=== PATIENT | male | born 1975 | race Caucasian/White ===

== ENCOUNTER 2016-12-18 19:10 | Emergency (ER) | payer MEDICAID ==
[2016-12-18 19:21] VITALS: BP 145/79; PULSE 97; RESP 20; TEMP 97.7; O2SAT 99
--- NOTE | 2016-12-18 19:23 | CPEKG ---
Heart Rate: 86 RR Interval: 698 P-R Interval: 160 QRSD Interval: 92 QT Interval: 360 QTC Interval: 431 P Citra: 61 QRS Citra: 36 T Wave Citra: 41 EKG Severity - NORMAL ECG - EKG Impression: SINUS RHYTHM Electronically Signed By: Sony Villegas 18-Dec-2016 19:28:55
[2016-12-18] MEDS ORDERED: ASPIRIN 81 MG CHEWABLE TAB PO ONE (19:33)
--- NOTE | 2016-12-18 19:37 | EDPHY ---
H & P Stated Complaint: CP, anxiety - Personal History Current Tetanus/Diphtheria Vaccine: Unsure Current Tetanus Diphtheria and Acellular Pertussis (TDAP): Unsure - Medical/Surgical History Hx Asthma: No Hx Chronic Respiratory Disease: No Hx Diabetes: No Hx Cardiac Disease: No Hx Renal Disease: No Hx Cirrhosis: No Hx Alcoholism: No Hx HIV/AIDS: No Hx Splenectomy or Spleen Trauma: No Other PMH: bipolar- no meds, just MJ - Social History Smoking Status: Never smoked Time Seen by Provider: 12/18/16 19:15 HPI/ROS: CHIEF COMPLAINT: Chest pain, anxiety HISTORY OF PRESENT ILLNESS: 41-year-old male with no prior cardiac history arrives via ambulance complaining of sudden onset chest pain, dyspnea, self- described "anxiety attack", "my face went numb", that started at 6:30 p.m. this evening after receiving an upsetting text message. He notes prior history of depression, anxiety, has been on multiple medications in the past and states that he has had adverse reactions to all them and does not want any anxiolytics or antidepressants. He denies suicidal or homicidal ideation. No alcohol, nonsmoker, no cocaine use. Notes numerous life stressors worse in the past few weeks PRIMARY CARE PROVIDER: no PCP REVIEW OF SYSTEMS: A ten point review of systems was performed and is negative with the exception of the items mentioned in the HPI PAST MEDICAL & SURGICAL HISTORY: history of depression SOCIAL HISTORY:no cocaine use. Nonsmoker. No alcohol use. FAMILY HISTORY: father age 55 of PR "and a lifetime of cocaine and heroin use". Mother with history of hypertension no PR. PHYSICAL EXAM (Prior to examination, patient consented to physical exam, hands were washed and my usual and customary physical exam procedures followed) 1) GENERAL: Well-developed, well-nourished, alert and oriented. Appears anxious 2) HEAD: Normocephalic, atraumatic 3) HEENT: Pupils equal, round, reactive to light bilaterally. Sclera anicteric. 4) NECK: Full range of motion, no meningeal signs. 5) LUNGS: Clear auscultation bilaterally, no wheezes, no rhonchi, no retractions. 6) HEART: Regular rate and rhythm, no murmur, no heave, no gallop. 7) ABDOMEN: No guarding, no rebound, no focal tenderness, 8) MUSCULOSKELETAL: carpal pedal spasms noted. . 9) BACK: No CVA tenderness 10) SKIN: No rash, no petechiae. 11) Psychiatric: Patient is oriented X 3, he is anxious and tearful DIFFERENTIAL DIAGNOSIS: In no particular order, including but not limited to myocardial ischemia, pulmonary embolus, chest wall pain, pleural inflammation, acute anxiety and pulmonary infectious causes. (Yanet Bird) Constitutional: Initial Vital Signs Temperature (C) 36.5 C 12/18/16 19:19 Heart Rate 97 12/18/16 19:19 Respiratory Rate 20 12/18/16 19:19 Blood Pressure 145/79 H 12/18/16 19:19 O2 Sat (%) 99 12/18/16 19:19 O2 Delivery Mode Room Air Allergies/Adverse Reactions: No Known Allergies Allergy (Unverified 12/18/16 19:20) Medical Decision Making - Diagnostics EKG Interpretation: 12-lead EKG interpreted by me; official reading is in trace master. My interpretation sinus rhythm with a rate of 86 and no acute ischemic changes. ( Sony Villegas) ED Course/Re-evaluation: 7:35 p.m.: Discussed case with secondary supine position Dr. Villegas. The patient is complaining of chest pain, anxiety. He refuses anxiolytic 7:54 p.m.: Patient informs me that he would like to leave, has pulled his IV out, "I want to leave this godforsaken place". He denies suicidal or homicidal ideation. He has been informed that his workup is incomplete. Informed him that in my professional opinion, I think he necessitates further evaluation. In my professional opinion, the patient fully understands the risks to his health and well-being by leaving the emergency department AGAINST MEDICAL ADVICE. Patient states that they would like to leave. By leaving AGAINST MEDICAL ADVICE the patient has been informed and has verbalized understanding and acceptance of the risks of leaving AGAINST MEDICAL ADVICE, including, but not limited to, , permanent and chronic disability, permanent and chronic loss of income, need for permanent long-term care, and other situations and circumstances too numerous to mention herein. I think he has the capacity to fully understand these risks. I have offered ample opportunity to answer questions. (Yanet Bird) Other Provider: PHYSICIAN DOCUMENTATION: The patient was evaluated and managed by the Physician Hair And Makeup Designer and myself. I have reviewed the chart and agree with the findings and plan of care as documented. In addition, I examined the patient myself at 1943. History confirmed as sudden onset sharp chest pain, non traumatic, anxiety, transported by EMS from [facility]. No cocaine, diabetes, or CAD in 30's. Physical findings as follows: Regular rate and rhythm without murmur, lungs clear to auscultation. Anxious, but clearly has capacity to make decisions regarding his care. Is logical and mostly worried about how he is going to get back to his car. EKG reviewed; no ischemic changes. Troponin and D-dimer both negative. Low likelihood for AMI, ACS, PE. Encouraged to return if he changes his mind about completing his emergency department evaluation for chest pain. I am the secondary supervising physician. (Sony Villegas) - Data Points Laboratory Results: Laboratory Results 12/18/16 19:18 12/18/16 19:18 12/18/16 12/18/16 12/18/16 19:18 19:18 19:18 WBC 11.11 10^3/uL H 10^3/uL (3.80-9.50) RBC 5.70 10^6/uL 10^6/uL (4.40-6.38) Hgb 16.3 g/dL g/dL (13.7-17.5) Hct 47.9 % % (40.0-51.0) MCV 84.0 fL fL (81.5-99.8) MCH 28.6 pg pg (27.9-34.1) MCHC 34.0 g/dL g/dL (32.4-36.7) RDW 13.0 % % (11.5-15.2) Plt Count 242 10^3/uL 10^3/uL (150-400) MPV 10.8 fL fL (8.7-11.7) Neut % (Auto) 69.5 % % (39.3-74.2) Lymph % (Auto) 20.9 % % (15.0-45.0) Rooks % (Auto) 6.8 % % (4.5-13.0) Eos % (Auto) 1.5 % % (0.6-7.6) Baso % (Auto) 0.8 % % (0.3-1.7) Nucleat RBC Rel Count 0.0 % % (0.0-0.2) Absolute Neuts (auto) 7.71 10^3/uL H 10^3/uL (1.70-6.50) Absolute Lymphs (auto) 2.32 10^3/uL 10^3/uL (1.00-3.00) Absolute Monos (auto) 0.76 10^3/uL 10^3/uL (0.30-0.80) Absolute Eos (auto) 0.17 10^3/uL 10^3/uL (0.03-0.40) Absolute Basos (auto) 0.09 10^3/uL 10^3/uL (0.02-0.10) Absolute Nucleated RBC 0.00 10^3/uL 10^3/uL (0-0.01) Immature Gran % 0.5 % % (0.0-1.1) Immature Gran # 0.06 10^3/uL 10^3/uL (0.00-0.10) D-Dimer < 0.27 ug/mLFEU ug/mLFEU (0.00-0.50) Sodium 140 mEq/L mEq/L (134-144) Potassium 4.6 mEq/L mEq/L (3.5-5.2) Chloride 105 mEq/L mEq/L (97-110) Carbon Dioxide 23 mEq/l mEq/l (22-31) Anion Gap 12 mEq/L mEq/L (8-16) BUN 18 mg/dL mg/dL (7-23) Creatinine 1.2 mg/dL mg/dL (0.7-1.3) Estimated GFR > 60 Glucose 131 mg/dL H mg/dL (70-100) Calcium 10.6 mg/dL H mg/dL (8.5-10.4) Troponin I < 0.012 ng/mL ng/mL (0-0.034) Medications Given: Discontinued Medications Aspirin (Aspirin) 324 mg PO EDNOW ONE Stop: 12/18/16 19:34 Last Admin: 12/18/16 19:59 Dose: Not Given Departure - Departure Disposition: Against Medical Advice Clinical Impression: Chest pain Instructions: Generalized Anxiety Disorder (ED) Additional Instructions: If you change your mind about seeking help for your symptoms please return to the Emergency Department. Referrals: Patient,NotPresent [Unknown] - As per Instructions
[2016-12-18 19:38] LABS: % IMMATURE GRANULYOCYTES 0.5 % (0.0-1.1); ABSOLUTE IMMATURE GRANULOCYTES 0.06 10^3/uL (0.00-0.10); ADD DIFF? NO; ADD MORPH? NO; ADD SCAN? NO; ATYPICAL LYMPHOCYTE FLAG 10 (0-99); FRAGMENT RBC FLAG 0 (0-99); HEMATOCRIT 47.9 % (40.0-51.0); HEMOGLOBIN 16.3 g/dL (13.7-17.5); LEFT SHIFT FLG 0 (0-99); LIPEMIA HEMOLYSIS FLAG 90 (0-99); MEAN CELL HEMOGLOBIN 28.6 pg (27.9-34.1); MEAN PLATELET VOLUME 10.8 fL (8.7-11.7); PLATELET CLUMPS FLAG 0 (0-99); PLATELET COUNT 242 10^3/uL (150-400)
[2016-12-18 19:44] LABS: ANION GAP 12 mEq/L (8-16); CALCIUM 10.6 mg/dL (8.5-10.4); CARBON DIOXIDE 23 mEq/l (22-31); CHLORIDE 105 mEq/L (97-110); CREATININE 1.2 mg/dL (0.7-1.3); GLOMERULAR FILTRATION RATE > 60; GLUCOSE 131 mg/dL (70-100); POTASSIUM 4.6 mEq/L (3.5-5.2); SODIUM 140 mEq/L (134-144)
[2016-12-18 19:56] LABS: TROPONIN I < 0.012 ng/mL (0-0.034)
== END 2016-12-18 20:16 | disposition left against medical advice (07) ==
LOC: EDUNIT#
DX: R07.9 Chest pain, unspecified (principal)

== ENCOUNTER 2017-06-07 11:58 | Emergency (ER) | payer OTHER, MEDICAID ==
[2017-06-07 12:12] VITALS: BP 146/89; PULSE 80; RESP 16; TEMP 97.5; O2SAT 96
--- NOTE | 2017-06-07 12:34 | EDPHY ---
H & P HPI/ROS: CHIEF COMPLAINT: Low back and left leg pain History by patient HISTORY OF PRESENT ILLNESS: 41-year-old man presents complaining of 2 weeks of severe left low back and left leg pain which began after he said he was on a ladder at work painting when he felt like his left leg gave out underneath him and he slid down landing on his left side. He did not his head or lose consciousness. Subsequently he has had no leg weakness but he continues to have ongoing pain. He describes the pain as constant but also occasional sharp shooting pains down his leg from his left buttock. He is concerned it might be his sciatic nerve. He denies any numbness or tingling. Pain is worse when he moves around particularly sitting or laying down or going up and down stairs. He denies any loss of bowel or bladder control or perianal anesthesia. He denies any fever chills or unexplained weight loss. He is otherwise healthy and does not use intravenous drugs. REVIEW OF SYSTEMS: As in HPI, and all other systems reviewed and are negative Smoking Status: Never smoked Physical Exam: General Appearance: Alert, comfortable, well appearing, muscular. Eyes: Pupils equal and round, no pallor or injection. ENT, Mouth: Mucous membranes moist. Gastrointestinal: Abdomen is soft and nontender, no masses, bowel sounds normal. Neurological: Awake, alert and oriented x 3, no pronator drift, normal gait, no pronator drift, DTRs 2+ and equal bilaterally in knees and ankles, no pain with straight leg raise, strength is 5/5 and equal bilateral lower extremities Back: No bony tenderness, mild left buttock tenderness, mild left paraspinal muscle tenderness and spasm Skin: Warm and dry, no rashes. Musculoskeletal: Neck is supple, FROM, nontender. Extremities: symmetrical, full range of motion. Psychiatric: Patient has normal affect, there is no agitation. Constitutional: Initial Vital Signs Temperature (C) 36.4 C 06/07/17 12:07 Heart Rate 80 06/07/17 12:07 Respiratory Rate 16 06/07/17 12:07 Blood Pressure 146/89 H 06/07/17 12:07 O2 Sat (%) 96 06/07/17 12:07 O2 Delivery Mode Room Air Allergies/Adverse Reactions: No Known Allergies Allergy (Verified 06/07/17 12:11) Home Medications: Medication Instructions Recorded CYCLOBENZAPRINE HCL [Flexeril] 5 mg PO TIDPRN PRN #12 tab 06/07/17 Ibuprofen 600 mg PO QID PRN #30 tablet 06/07/17 Lidocaine 5% [Lidoderm 5% Patch 1 ea TD DAILY #30 patch 06/07/17 (*)] MDM/Departure - [facility] ED Course/Re-evaluation: 41-year-old man presents complaining of left low back pain and sciatica like symptoms. He has normal neurologic exam and there are no red flags on history. Patient was given reassurance and education and treated conservatively with Flexeril and ibuprofen. He is referred for primary care follow-up. - Depart Disposition: Home, Routine, Self-Care Clinical Impression: Low back pain of thoracolumbar region with sciatica Condition: Fair Instructions: Acute Low Back Pain (ED) Additional Instructions: You were seen by Dr. Lucero Dillard today. Try ibuprofen 600 mg 4 times a day as needed for pain and Flexeril if needed. Try also topical lidocaine patches. You may add Tylenol 1000 mg 4 times a day 2 ibuprofen if you need additional pain relief. Please establish a primary care provider for ongoing follow-up care. Return for any worsening or new concerns. Stand Alone Forms: Work Excuse Prescriptions: CYCLOBENZAPRINE HCL [Flexeril] 5 mg PO TIDPRN PRN #12 tab PRN Reason: Pain, Moderate Ibuprofen 600 mg PO QID PRN #30 tablet PRN Reason: pain Lidocaine 5% [Lidoderm 5% Patch (*)] 1 ea TD DAILY #30 patch Referrals: NONE *PRIMARY CARE P,. [Primary Care Provider] - As per Instructions
== END 2017-06-07 12:50 | disposition home or self-care (01) ==
LOC: CED 11:58
DX: M54.42 Lumbago with sciatica, left side (principal)

== ENCOUNTER 2017-07-25 13:46 | Emergency (ER) | payer OTHER ==
[2017-07-25 13:54] VITALS: BP 123/68; PULSE 70; RESP 20; TEMP 97.7; O2SAT 100
--- NOTE | 2017-07-25 14:19 | EDPHY ---
H & P HPI/ROS: CHIEF COMPLAINT: Back pain History by patient HISTORY OF PRESENT ILLNESS: 41-year-old man who is 4 days status post microdiskectomy by Dr. Prieto at [facility] presents complaining of ongoing significant back pain and running out of his Percocet. Patient states he has been taking it as prescribed every 4 hr and called his physician to get a refill but is unable to reach anyone in the office all day. He denies any fever chills. He denies any focal numbness or weakness. He is also taking a muscle relaxant. He is not taking ibuprofen because he says he had bleeding ulcers in the past. REVIEW OF SYSTEMS: As in HPI, and all other systems reviewed and are negative Smoking Status: Never smoked Physical Exam: General Appearance: Alert, uncomfortable appearing. Eyes: Pupils equal and round, no pallor or injection. ENT, Mouth: Mucous membranes moist. Gastrointestinal: Abdomen is soft and nontender, no masses, bowel sounds normal. Neurological: Awake, alert and oriented x 3, no pronator drift, normal gait, no pronator drift, DTRs 2+ and equal bilaterally in knees and ankles Back: No bony tenderness, positive a surgical wound over the lumbar spine with dressing intact with some serosanguineous drainage but no pus. Skin: Warm and dry, no rashes. Musculoskeletal: Neck is supple, FROM, nontender. Extremities: symmetrical, full range of motion. Psychiatric: Patient has normal affect, there is no agitation. Constitutional: Initial Vital Signs Temperature (C) 36.5 C 07/25/17 13:49 Heart Rate 70 07/25/17 13:49 Respiratory Rate 20 07/25/17 13:49 Blood Pressure 123/68 H 07/25/17 13:49 O2 Sat (%) 100 07/25/17 13:49 O2 Delivery Mode Room Air Allergies/Adverse Reactions: antidepressants Allergy (Uncoded 07/25/17 13:54) Home Medications: Medication Instructions Recorded CEPHALEXIN 07/25/17 Flexeril 07/25/17 Miralax 17 gm (*) 07/25/17 Tramadol HCl 07/25/17 oxyCODONE HCL/ACETAMINOPHEN 07/25/17 oxyCODONE HCL/ACETAMINOPHEN 1 each PO Q4-6PRN PRN #6 tablet 07/25/17 [Percocet 5-325 mg Tablet] MDM/Departure - MDM ED Course/Re-evaluation: 41-year-old man presents complaining of ongoing back pain and running out of Percocet. There is no evidence of wound infection or neurologic compromise. Patient was looked up in [facility] and there were no entries under this name and date. By count the patient has been taking the Percocet appropriately and has the bottle here with him. Review of [facility] confirm that the patient did have the surgery. Patient is given a prescription for 6 Percocet pills and told he will not be given any further refills from our facility in the future. - Depart Disposition: Home, Routine, Self-Care Clinical Impression: Post-operative pain Condition: Good Instructions: Chronic Back Pain (ED) Additional Instructions: You were seen by Dr. Lucero Dillard today. Please follow-up as soon as possible with your back surgeon. You will receive no more medication refills in the emergency department. Return for any worsening or new concerns. Prescriptions: oxyCODONE HCL/ACETAMINOPHEN [Percocet 5-325 mg Tablet] 1 each PO Q4-6PRN PRN #6 tablet PRN Reason: pain
== END 2017-07-25 14:35 | disposition home or self-care (01) ==
LOC: CED 13:46
DX: G89.18 Other acute postprocedural pain (principal)

== ENCOUNTER 2017-09-24 10:56 | Emergency (ER) | payer MEDICAID, OTHER ==
[2017-09-24 11:04] VITALS: BP 135/86; PULSE 79; RESP 16; TEMP 97.9; O2SAT 98
[2017-09-24] MEDS ORDERED: IBUPROFEN 600 MG TAB PO ONE (11:08)
--- NOTE | 2017-09-24 11:11 | EDPHY ---
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 The incident occurred shortly prior to arrival. The bleeding slowed with direct pressure. He notes no other exacerbating or alleviating factors. He has not had any medications for the pain prior to arrival. He drove himself by private vehicle here for evaluation. ROS: Neuro: No numbness. No difficulty moving the affected extremity. Musculoskeletal: No bony pain in the affected thumb. 5 point ROS is otherwise negative. Past Medical/Surgical History: Immunizations up-to-date Smoking Status: Never smoked Physical Exam: Physical Exam Vital signs are normal. General: No acute distress HEENT: Atraumatic. Eyes: Pupils equal and react to light. Extraocular motions are intact. Lungs: No respiratory distress. Cardiac: Brisk capillary refill is intact throughout. Pulses are 2+ and symmetric in the affected extremity. Skin: No rash or pallor. Extremities: Atraumatic normal except for left thumb Left thumb: Patient has a 1 x 1.5 cm skin avulsion to the radial aspect of the palmar distal 5th phalanx of the thumb. Subcutaneous tissues visible with no exposure of bone. There is mild study bleeding. No foreign bodies on direct examination. The nail bed is not affected. Neuro: Alert with no sensorimotor deficits. Constitutional: Initial Vital Signs Temperature (C) 36.6 C 09/24/17 11:02 Heart Rate 79 09/24/17 11:02 Respiratory Rate 16 09/24/17 11:02 Blood Pressure 135/86 H 09/24/17 11:02 O2 Sat (%) 98 09/24/17 11:02 O2 Delivery Mode Room Air Allergies/Adverse Reactions: antidepressants Allergy (Uncoded 09/24/17 11:01) pt reports "does not work" Home Medications: Medication Instructions Recorded NK [No Known Home Meds] 09/24/17 MDM/Departure - [facility] ED Course/Re-evaluation: The patient declined a digital block for pain control. He did except ibuprofen p. O. The wound is clean. Our tech placed Surgicel dressing and tube gauze. I counseled him regarding wound care. Discussion: Finger tip skin avulsion without complicating factors. - Depart Disposition: Home, Routine, Self-Care Clinical Impression: Avulsion, finger tip Qualifiers: Encounter type: initial encounter Qualified Code(s): S61.209A - Unspecified open wound of unspecified finger without damage to nail, initial encounter Condition: Good Instructions: Skin Avulsion (ED) Additional Instructions: Diagnosis: Thumb tip avulsion Plan: Keep dressing in place for the next 2-3 days then soak the dressing and half-strength peroxide and warm water to tease off the dressing. Then gently clean the wound and apply bandages and a splint until the wound heals. Return if you develop redness, discharge or other concerns for infection. Ibuprofen and Tylenol for pain. Referrals: Malgorzata Levy MD [Primary Care Provider] - As per Instructions
== END 2017-09-24 11:48 | disposition home or self-care (01) ==
LOC: CED 10:56
DX: S61.002A Unspecified open wound of left thumb without damage to nail, initial encounter (principal); W26.0XXA Contact with knife, initial encounter; Y92.009 Unspecified place in unspecified non-institutional (private) residence as the place of occurrence of the external cause